=== PATIENT | male | born 1970 | race Caucasian/White ===

== ENCOUNTER 2024-11-21 16:37 | Emergency (ER) | payer MEDICAID ==
[2024-11-21 17:06] LABS: BASOPHILS ABSOLUTE AUTO 0.07 K/uL (0.00-0.20); BASOPHILS PERCENT AUTO 0.7 % (0.0-1.0); EOSINOPHILS ABSOLUTE AUTO 0.24 K/uL (0.00-0.45); EOSINOPHILS PERCENT AUTO 2.4 % (0.0-6.0); HEMATOCRIT 45.7 % (42.0-52.0); HEMOGLOBIN 16.1 g/dL (14.0-18.0); IMMATURE GRAN ABSOLUTE AUTO 0.03 K/uL (0.00-0.05); IMMATURE GRAN PERCENT AUTO 0.3 % (0.0-0.4); LYMPHOCYTES ABSOLUTE AUTO 3.85 K/uL (1.00-4.80); LYMPHOCYTES PERCENT AUTO 38.3 % (24.0-44.0); MEAN CORPUSCULAR HEMOGLOBIN 33.8 pg (28.0-32.0); MEAN CORPUSCULAR HGB CONC 35.2 g/dL (32.0-36.0); MEAN CORPUSCULAR VOLUME 95.8 fL (83.0-99.0); MONOCYTES ABSOLUTE AUTO 0.77 K/uL (0.00-0.80); MONOCYTES PERCENT AUTO 7.7 % (0.0-8.0); NEUTROPHILS ABSOLUTE AUTO 5.09 K/uL (1.80-7.70); NEUTROPHILS PERCENT AUTO 50.6 % (41.0-71.0); PLATELET COUNT,PLT 225 K/uL (150-400); RED BLOOD CELL COUNT 4.77 M/uL (4.52-5.90); WHITE BLOOD CELL COUNT,WBC 10.05 K/uL (3.9-11.3)
[2024-11-21] MEDS: Ketorolac 30 MG/ML SDV IVPUSH ONE (17:11)
[2024-11-21] MEDS: Ondansetron 4 MG/2 ML SDV IVPUSH ONE (17:11)
[2024-11-21] MEDS: Sodium Chloride 0.9% 1,000 ML IV ONE (17:11)
[2024-11-21 17:28] LABS: A/G RATIO 1.1 (0.9-1.6); ALBUMIN 3.6 g/dL (3.4-5.0); BILIRUBIN TOTAL 0.3 mg/dL (0.2-1.0); CALCIUM 8.7 mg/dL (8.5-10.1); CARBON DIOXIDE,CO2 27.3 mmol/L (21.0-32.0); CREATININE 0.9 mg/dL (0.8-1.3); EST CRCL DRUG DOSING (CG) 109.54 mL/min; POTASSIUM,K 3.8 mmol/L (3.5-5.1)
[2024-11-21] MEDS: Iopamidol 755 MG/ML 500 ML Multipack Bottle IVPUSH STA (17:48)
[2024-11-21] MEDS: fentaNYL 50 MCG/ML SDV IVPUSH ONE (18:10)
[2024-11-21 18:24] LABS: APPEARANCE,URINE CLEAR; BILIRUBIN,URINE NEGATIVE (NEGATIVE); COLOR,URINE YELLOW; GLUCOSE,URINE >=1000 mg/dL (NEGATIVE); KETONES,URINE NEGATIVE (NEGATIVE); LEUKOCYTE ESTERASE,URINE NEGATIVE (NEGATIVE); NITRITE,URINE NEGATIVE (NEGATIVE); OCCULT BLOOD,URINE NEGATIVE (NEGATIVE); PROTEIN,URINE NEGATIVE (NEGATIVE); UROBILINOGEN,URINE 0.2 EU/dL (<2.0)
== END 2024-11-21 19:43 | disposition home or self-care (01) ==
LOC: EDBD 16:37 → MW.ED 16:37
DX: K57.30 Diverticulosis of large intestine without perforation or abscess without bleeding (principal); Z79.899 Other long term (current) drug therapy; Z75.3 Unavailability and inaccessibility of health-care facilities
CPT/HCPCS: 36415; 74177; 80053; 81003; 83690; 85025; 96361; 96374; 96375; 99284; J1885; J2405; J3010; J7030; Q9967; 99283

== ENCOUNTER 2024-12-26 09:39 | Emergency (ER) | payer SELFPAY ==
[2024-12-26] MEDS: Cyclobenzaprine 10 MG Tab PO ONE (10:04)
[2024-12-26] MEDS: Ketorolac 30 MG/ML SDV IM ONE (10:04)
[2024-12-26] MEDS: oxyCODONE 5 MG Tab PO ONE (11:04)
== END 2024-12-26 11:29 | disposition home or self-care (01) ==
LOC: MW.ED 09:39
DX: M54.50 Low back pain, unspecified (principal); E78.00 Pure hypercholesterolemia, unspecified; I10 Essential (primary) hypertension; E11.9 Type 2 diabetes mellitus without complications; F17.210 Nicotine dependence, cigarettes, uncomplicated; Z79.899 Other long term (current) drug therapy
CPT/HCPCS: 72131; 96372; 99283; A9270; J1885